=== PATIENT | male | born 1975 | race Hispanic/Latino ===

== ENCOUNTER → 2021-12-26 | Day surgery (SDC) | payer BC ==
[2021-12-22 11:18] LABS: ANION GAP 17.9 mmol/L (8-16); CALCIUM 9.5 mg/dL (8.4-10.2); CREATININE, SERUM 1.04 mg/dL (0.72-1.25); POTASSIUM 3.9 mmol/L (3.5-5.1)
[~2021-12-26] MED LIST: ASPIRIN81 MG PO; BUPIVACAINE 0.25% 30ML SDV ONE; CRESTOR10 MG PO; HYDROCODONE/APAP 10MG-325MG TAB ONE; LIDOCAINE 1% W/EPINEPHRINE 20 ML VIAL ONE; LOSARTAN-HCTZ1 EAC1 PO; METAMUCIL PO; METOPROLOL SUCC50 MG PO; OMEPRAZOLE40 MG PO
[2021-12-26 09:00] VITALS: BP 130/85
== END | disposition home or self-care (01) ==
LOC: OR 05:50
PROVIDERS: ATTEND Orthopaedic Surgery
DX: S83.271A Complex tear of lateral meniscus, current injury, right knee, initial encounter (principal); S83.241A Other tear of medial meniscus, current injury, right knee, initial encounter; S83.272A Complex tear of lateral meniscus, current injury, left knee, initial encounter; M22.41 Chondromalacia patellae, right knee; M67.51 Plica syndrome, right knee; M23.41 Loose body in knee, right knee; K21.9 Gastro-esophageal reflux disease without esophagitis; I10 Essential (primary) hypertension; E78.5 Hyperlipidemia, unspecified; Z79.82 Long term (current) use of aspirin; X58.XXXA Exposure to other specified factors, initial encounter; Z01.810 Encounter for preprocedural cardiovascular examination; Z01.812 Encounter for preprocedural laboratory examination; Z20.822 Contact with and (suspected) exposure to COVID-19; Z79.899 Other long term (current) drug therapy
CPT/HCPCS: 0223U; 29880; 36415; 80048; 93005; J0690